=== PATIENT | female | born 1980 | race Asian ===

== ENCOUNTER → 2017-10-17 | Outpatient (CLI) | payer OTHER ==
--- NOTE | 2017-10-18 14:51 | RADRPT ---
PROCEDURE: I - 123 thyroid uptake and scan CLINICAL INDICATION: 37 -year-old patient with hyperthyroidism. TECHNIQUE: Following the oral administration of 0.19 mCi of I - 123, thyroid uptake and scan was o btained. COMPARISON: No prior thyroid scans. FINDINGS: 6 hours radioiodine uptake is 100 % (normal range is 5% - 20%). 24 hours radioiodine uptake is 100 % (normal range is 7% - 35%). The thyroid gland demonstrates an enlarged thyroid gland (approximately 2.5 x normal size) with diff usely increased homogeneous distribution of radionuclide throughout the thyroid gland. IMPRESSION: The findings are consistent with Graves' disease. RPTAT: HH .Karina Alba MD, MD Date Time Electronically viewed and signed by .Karina Alba MD, on 10/18/2017 14:50 .L/
== END | disposition home or self-care (01) ==
LOC: NUC 09:43
PROVIDERS: ATTEND Internal Medicine
DX: E05.00 Thyrotoxicosis with diffuse goiter without thyrotoxic crisis or storm (principal)
CPT/HCPCS: 78014; A9516

== ENCOUNTER → 2017-10-28 | Outpatient (CLI) | END | disposition home or self-care (01) ==